=== PATIENT | female | born 1985 | race Caucasian/White ===

== ENCOUNTER 2016-08-13 23:55 | Inpatient (IN) | payer OTHER ==
[2016-08-14] MEDS ORDERED: Penicillin G Potassium IV* 5 MILLION.UNITS VIAL ONE (00:19)
[2016-08-14 00:32] LABS: Hematocrit 41 % (35-47); Hemoglobin 13.4 g/dl (12.0-16.0); Mean Corpuscular HGB Conc 33 g/dl (31-36); Mean Corpuscular Hemoglobin 31 pg (27-31); Mean Corpuscular Volume 94 fL (80-97); Mean Platelet Volume 10 um3 (7.4-10.4); Red Blood Count 4.32 10^6/ul (4.0-5.4); Red Cell Distribution Width 14 % (10.5-15)
[2016-08-14] MEDS ORDERED: Oxytocin in LR* 20 UNITS/1,000 ML BAG IVPB ONE (03:30)
[2016-08-14] MEDS ORDERED: Dibucaine 1% 28.35 GM TUBE PR PRN (03:49)
[2016-08-14] MEDS ORDERED: oxyCODONE/Acetamin 5/325 MG* TAB PO PRN (03:49)
[2016-08-14] MEDS ORDERED: Witch Hazel PAD* JAR TOPICAL PRN (03:49)
[2016-08-14] MEDS ORDERED: Acetaminophen TAB* 325 MG PO PRN (03:49)
[2016-08-14] MEDS ORDERED: Glycerin ADULT SUPP PR PRN (03:49)
[2016-08-14] MEDS ORDERED: Oxytocin in LR* 20 UNITS/1,000 ML BAG IVPB SCH (04:00)
[2016-08-14] MEDS: Ibuprofen TAB* 600 MG PO PRN ×3 (05:42→18:05)
[2016-08-14] MEDS: Docusate CAP* 100 MG PO SCH ×3 (08:56→20:12)
[2016-08-15] MEDS: Ibuprofen TAB* 600 MG PO PRN ×4 (00:31→19:56)
[2016-08-15 07:39] LABS: Hematocrit 33 % (35-47); Hemoglobin 10.8 g/dl (12.0-16.0); Mean Corpuscular HGB Conc 33 g/dl (31-36); Mean Corpuscular Hemoglobin 31 pg (27-31); Mean Corpuscular Volume 95 fL (80-97); Mean Platelet Volume 9 um3 (7.4-10.4); Red Blood Count 3.45 10^6/ul (4.0-5.4); Red Cell Distribution Width 14 % (10.5-15); White Blood Count 17.1 10^3/ul (3.5-10.8)
[2016-08-15] MEDS: Docusate CAP* 100 MG PO SCH ×3 (08:06→19:56)
[2016-08-16] MEDS: Ibuprofen TAB* 600 MG PO PRN (05:04)
[2016-08-16] MEDS: Ferrous Gluconate TAB* 324 MG TAB PO SCH (07:59)
[2016-08-16 08:10] VITALS: BP 125/74
[2016-08-16] MEDS: Docusate CAP* 100 MG PO SCH (09:25)
== END 2016-08-16 11:26 | disposition home or self-care (01) | DRG 775 ==
LOC: MCHOBOUT 23:55 → MCHOB 08-14 00:04
PROVIDERS: ADMIT Midwife; ATTEND Midwife
PROC: 10E0XZZ Delivery of Products of Conception, External Approach (ICD-10-PCS; principal; 2016-08-14)
PROC: 0UQMXZZ Repair Vulva, External Approach (ICD-10-PCS; 2016-08-14)
PROC: 4A1HXCZ Monitoring of Products of Conception, Cardiac Rate, External Approach (ICD-10-PCS; 2016-08-14)
DX: O48.0 Post-term pregnancy (principal); O99.824 Streptococcus B carrier state complicating childbirth; Z3A.41 41 weeks gestation of pregnancy; Z37.0 Single live birth; O77.0 Labor and delivery complicated by meconium in amniotic fluid; O70.0 First degree perineal laceration during delivery
CPT/HCPCS: 36415; 85025; 85027; 86850; 86900; 86901; A9270-GY; J2540